=== PATIENT | male | born 1995 | race Caucasian/White ===

== ENCOUNTER 2016-09-20 18:32 | Emergency (ER) | payer OTHER ==
[2016-09-20] MEDS ORDERED: Lidocaine 1% 5ml(IM or SUTURE)(PAIN CLINIC) ONE (18:47)
--- NOTE | 2016-09-20 19:26 | ED Physician Documentation ---
Head Injury - HPI Stated Complaint: laceration Chief Complaint: Head Injury Onset: just prior to arrival (17:30) Where: home Timing: still present Context: direct blow Loss of Consciousness: no loss of consciousness Further Comments: yes - ROS CONST: no problems - PAST HX Past History: none Immunizations: tetanus (4 years ago), UTD Allergies/Adverse Reactions: Allergies Allergy/AdvReac Type Severity Reaction Status Date / Time Penicillins Allergy Verified 09/20/16 18:40 Home Medications: Ambulatory Orders Medication Instructions Recorded Dextroamphetamine/Amphetamine 15 mg PO DAILY 09/20/16 [Adderall Xr 15 mg Capsule] - SOCIAL HX Smoking History: non-smoker Alcohol Use: none Drug Use: none - FAMILY HX Family History: no significant history - VITAL SIGNS Vital Signs: Vital Signs Temp Pulse Resp BP Pulse Ox 100.5 F H 71 18 121/85 98 09/20/16 18:54 09/20/16 18:54 09/20/16 18:54 09/20/16 18:54 09/20/16 18:54 - REVIEWED ASSESSMENTS Nursing Assessment Reviewed: Yes Vitals Reviewed: Yes Procedures Wound Location: head (right fore head) Wound's Depth, Shape: superficial, linear Wound Explored: clean Betadine Prep?: No (aj hex) Anesthesia: 1% Lidocaine Wound Debrided: none Wound Repaired With: sutures Suture Size/Type: 6:0 Number of Sutures: 5 (simple) Layer Closure?: No Sterile Dressing Applied?: No (TAC) Splint Applied?: No Sling Applied?: No ED Results Lab/Radiology - Orders Orders: ED Orders Category Date Time Status Lidocaine 1% 5ml(IM or SUTURE) [Xylocaine] Med 09/20/16 18:47 Discontinued 50 mg .ROUTE .STK-MED ONE Head Injury Physical Exam - Physical Exam General Appearance: no acute distress, alert Head: trauma Neck: non-tender, painless ROM Nexus Criteria: Nexus criteria neg Eyes: ISRA, EOMI, other (Fundi benign bialterally). No: ecchymosis ENT: nml external inspection, pharynx nml Neuro: alert, oriented x3, cooperative, interactive, mood/affect nml Cranial: nml as tested Sensorimotor: motor nml, sensation nml Resp/CVS: chest non-tender, breath sounds nml, heart sounds nml, no resp. distress, lungs clear, reg. rate & rhythm - [place] Coma Score Coma Scale Eye Opening: Spontaneous Coma Scale Verbal: Oriented Coma Scale Motor: Obeys Commands Discharge Clincal Impression: Laceration Referrals: Sharron Thakur MD [Primary Care Provider] - 2 Days Additional Instructions: Keep laceration clean and dry, watch for any signs of infection. Have sutures removed in 5 days. Follow head instructions. If you have nay questions or problems to return or call the ED. Home Medications: Ambulatory Orders Dextroamphetamine/Amphetamine [Adderall Xr 15 mg Capsule] 15 mg PO DAILY Condition: Stable Disposition: 01 HOME, SELF-CARE Decision to Admit: NO Date of Decison to Admit: 09/20/16 Decision Time: 19:32
[2016-09-20 19:58] VITALS: BP 131/66
== END 2016-09-20 19:40 | disposition home or self-care (01) ==
LOC: ED 18:32
DX: S01.81XA Laceration without foreign body of other part of head, initial encounter (principal); X58.XXXA Exposure to other specified factors, initial encounter; Y93.9 Activity, unspecified; Y99.9 Unspecified external cause status
CPT/HCPCS: 12011; 99283